=== PATIENT | male | born 1995 | race Caucasian/White ===

== ENCOUNTER 2020-08-09 21:30 | Inpatient (IN) | payer MEDICAID ==
[~2020-08-09] VITALS: Ht 175.3 cm; Wt 64.7 kg
[2020-08-09 22:29] LABS: COVID AG,FIA SOURCE NASOPHARYNGEAL
[2020-08-09 23:01] LABS: BASOPHILS % (AUTO) 0.3 % (0.0-2.0); EOSINOPHILS % (AUTO) 0 % (1.0-6.0); HEMATOCRIT 43.6 % (41-53); HEMOGLOBIN 14.1 g/dL (13.5-17.5); LYMPHOCYTES # (AUTO) 2.3 K/uL (1.0-4.8); LYMPHOCYTES % (AUTO) 20.7 % (22.0-44.0); MEAN CORPUSCULAR HEMOGLOBIN 28.8 pg (26.0-34.0); MEAN CORPUSCULAR HGB CONC 32.4 G/dL (31.0-37.0); MEAN CORPUSCULAR VOLUME 89 fL (80-100); MONOCYTES % (AUTO) 8.8 % (2.0-9.0); NEUTROPHILS # (AUTO) 7.8 K/uL (1.8-7.7); NEUTROPHILS % (AUTO) 70.2 % (40.0-70.0); PLATELET COUNT (AUTO) 397 K/uL (150-450); RED CELL DISTRIBUTION WIDTH 13.2 % (11.5-14.5)
[2020-08-09 23:24] LABS: ANION GAP 12 mmol/L (8-16); CALCIUM, TOTAL 9.1 mg/dL (8.8-10.5); CARBON DIOXIDE 23 mmol/L (22-29); CHLORIDE 104 mmol/L (98-107); CREATININE 0.94 mg/dL (0.60-1.30); GLOMERULAR FILTR. RATE CALC > 60 mL/min (>60); GLUCOSE,RANDOM 100 mg/dL (70-110); POTASSIUM 4.2 mmol/L (3.5-5.1); SODIUM SERUM 139 mmol/L (136-145); UREA NITROGEN, BLOOD 19 mg/dL (7-18)
[2020-08-09 23:30] LABS: ALANINE AMINOTRANSFERASE 71 U/L (12-78); ALKALINE PHOSPHATASE 57 U/L (46-116); ASPARTATE AMINOTRANSFERASE 20 U/L (15-37); BILIRUBIN,TOTAL 0.6 mg/dL (0.1-1.0); TOTAL PROTEIN, SERUM 8.4 g/dL (6.4-8.2)
[2020-08-10] MEDS ORDERED: HALOPERIDOL LACTATE 5 MG/ML VIAL IM ONE (03:00)
[2020-08-10] MEDS ORDERED: DiphenhydrAMINE HCL 50 MG/ML VIAL IVP ONE (05:30)
[2020-08-10] MEDS ORDERED: LevETIRAcetam 1,000 MG in DEXTROSE 5%-WATER 100 ML IV ONE (05:45)
[2020-08-10] MEDS ORDERED: LORazepam 2 MG/ML VIAL IVP ONE (05:45)
[2020-08-10 06:05] LABS: AMPHET/METH SCREEN,URINE NEGATIVE (NEGATIVE); BARBITURATE SCREEN, URINE NEGATIVE (NEGATIVE); BENZODIAZEPINES SCREEN,URINE POSITIVE (NEGATIVE); CANNABINOID SCREEN,URINE POSITIVE (NEGATIVE); COCAINE SCREEN,URINE NEGATIVE (NEGATIVE); METHADONE SCREEN, URINE NEGATIVE (NEGATIVE); OPIATE SCREEN,URINE NEGATIVE (NEGATIVE)
[2020-08-10 06:09] LABS: PHENCYCLIDINE SCREEN,URINE NEGATIVE (NEGATIVE)
[2020-08-10 06:17] LABS: GLUCOSE,POINT OF CARE 98 MG/DL (70-110)
[2020-08-10] MEDS ORDERED: MORPHINE SULFATE 2 MG/ML SYRINGE IVP PRN (11:30)
[2020-08-10] MEDS ORDERED: ZOLPIDEM TARTRATE 5 MG TABLET PO PRN (11:30)
[2020-08-10] MEDS ORDERED: ONDANSETRON HCL 4 MG/2 ML VIAL IVP PRN (11:30)
[2020-08-10] MEDS ORDERED: MAGNESIUM SULFATE 2 GM, MVI, ADULT NO.1 WITH VIT K 10 ML, THIAMINE 100 MG, FOLIC ACID 1... IV ONE ×5 (11:30)
[2020-08-10] MEDS ORDERED: ACETAMINOPHEN 325 MG TABLET PO PRN (11:30)
[2020-08-10] MEDS ORDERED: MAGNESIUM HYDROXIDE SUSPENSION 30 ML UDCUP PO PRN (11:30)
[2020-08-10] MEDS ORDERED: BISACODYL 10 MG RECTAL RECTAL SUPPOSITORY PR PRN (11:30)
[2020-08-10] MEDS ORDERED: LevETIRAcetam 750 MG in DEXTROSE 5%-WATER 100 ML IV SCH (15:00)
[2020-08-10] MEDS: LORazepam 2 MG/ML VIAL IVP PRN ×2 (15:06→20:27)
[2020-08-10] MEDS: HEPARIN SODIUM,PORCINE 5,000 UNITS/ML VIAL SQ SCH (15:41)
[2020-08-10] MEDS: LevETIRAcetam 750 MG in DEXTROSE 5%-WATER 100 ML IV SCH (19:48)
[2020-08-10] MEDS ORDERED: LORazepam 2 MG/ML VIAL ONE (20:26)
[2020-08-10 20:46] LABS: GLUCOSE,POINT OF CARE 96 MG/DL (70-110)
[2020-08-10] MEDS: DOCUSATE SODIUM 100 MG CAPSULE PO SCH (21:00)
[2020-08-10 21:08] VITALS: BP 153/72
[2020-08-11 00:09] VITALS: BP 100/72
[2020-08-11] MEDS: HEPARIN SODIUM,PORCINE 5,000 UNITS/ML VIAL SQ SCH ×4 (00:48→23:35)
[2020-08-11] MEDS ORDERED: SODIUM CHLORIDE 0.9% 250 ML IV ONE (05:35)
[2020-08-11] MEDS: LevETIRAcetam 750 MG in DEXTROSE 5%-WATER 100 ML IV SCH ×2 (05:39→17:11)
[2020-08-11 05:51] VITALS: BP 156/96
[2020-08-11 07:30] VITALS: BP 132/80
[2020-08-11] MEDS: PANTOPRAZOLE SODIUM 40 MG DR TABLET PO SCH (11:14)
[2020-08-11] MEDS: DOCUSATE SODIUM 100 MG CAPSULE PO SCH ×2 (11:14→20:23)
[2020-08-11 11:52] VITALS: BP 125/79
[2020-08-11 15:31] VITALS: BP 121/71
[2020-08-11 20:15] VITALS: BP 134/71
[2020-08-12] VITALS (7 sets, daily range): BP systolic 122–136; BP diastolic 58–91
[2020-08-12] MEDS: LevETIRAcetam 750 MG in DEXTROSE 5%-WATER 100 ML IV SCH (06:12)
[2020-08-12] MEDS: HEPARIN SODIUM,PORCINE 5,000 UNITS/ML VIAL SQ SCH ×3 (08:24→23:35)
[2020-08-12] MEDS: DOCUSATE SODIUM 100 MG CAPSULE PO SCH ×2 (08:24→20:02)
[2020-08-12] MEDS: PANTOPRAZOLE SODIUM 40 MG DR TABLET PO SCH (08:24)
[2020-08-12] MEDS: LORazepam 2 MG/ML VIAL IVP PRN ×2 (14:57→20:28)
[2020-08-12] MEDS: HYDROCODONE/ACETAMINOPHEN 5-325 MG TABLET PO PRN ×2 (15:19→20:09)
[2020-08-12] MEDS ORDERED: LORazepam 2 MG/ML VIAL IM PRN (15:30)
[2020-08-12] MEDS: LevETIRAcetam 500 MG TABLET PO SCH (16:46)
[2020-08-13 05:05] VITALS: BP 127/64
[2020-08-13 07:15] VITALS: BP 133/96
[2020-08-13] MEDS: LevETIRAcetam 500 MG TABLET PO SCH (08:25)
[2020-08-13] MEDS: PANTOPRAZOLE SODIUM 40 MG DR TABLET PO SCH (08:25)
[2020-08-13] MEDS: HEPARIN SODIUM,PORCINE 5,000 UNITS/ML VIAL SQ SCH ×2 (08:27→16:21)
[2020-08-13] MEDS: DOCUSATE SODIUM 100 MG CAPSULE PO SCH (08:27)
[2020-08-13 11:19] VITALS: BP 142/79
[2020-08-13 14:56] VITALS: BP 125/78
[2020-08-13] MEDS ORDERED: LEVE500T53 PO (16:06)
== END 2020-08-13 18:40 | disposition home or self-care (01) | DRG 100 ==
LOC: EMS 21:30 → ICU 08-10 06:13 → AHU 08-10 09:24 → 6N 08-10 20:00 → 5S 08-10 20:45 → 6N 08-13 14:35
PROVIDERS: ADMIT Internal Medicine; ATTEND Internal Medicine
DX: R56.9 Unspecified convulsions (principal); G92 Toxic encephalopathy; M62.838 Other muscle spasm; Z20.822 Contact with and (suspected) exposure to COVID-19; F99 Mental disorder, not otherwise specified; F12.90 Cannabis use, unspecified, uncomplicated
CPT/HCPCS: 51702; 70450; 70551; 82948; 83605; 87426; 95816; 99285; G0480; J0712; J1200; J1630; J1644; J2060; J3411; J3475; J3490; J7030; J7050; J7060

== ENCOUNTER 2020-08-28 09:21 | Emergency (ER) | payer MEDICAID ==
[~2020-08-28] VITALS: Ht 177.8 cm; Wt 70.5 kg
[~2020-08-28 09:21] MED LIST: LEVE500T53 PO
[2020-08-28 09:59] LABS: COVID AG,FIA SOURCE NASAL SWAB
[2020-08-28 10:29] LABS: BASOPHILS % (AUTO) 0.3 % (0.0-2.0); EOSINOPHILS % (AUTO) 0 % (1.0-6.0); HEMATOCRIT 39.5 % (41-53); HEMOGLOBIN 13.1 g/dL (13.5-17.5); LYMPHOCYTES # (AUTO) 0.9 K/uL (1.0-4.8); LYMPHOCYTES % (AUTO) 11.1 % (22.0-44.0); MEAN CORPUSCULAR HEMOGLOBIN 29.3 pg (26.0-34.0); MEAN CORPUSCULAR HGB CONC 33.3 G/dL (31.0-37.0); MEAN CORPUSCULAR VOLUME 88 fL (80-100); MONOCYTES # (AUTO) 0.3 K/uL (0.1-1.0); MONOCYTES % (AUTO) 4.2 % (2.0-9.0); NEUTROPHILS # (AUTO) 6.5 K/uL (1.8-7.7); NEUTROPHILS % (AUTO) 84.4 % (40.0-70.0); PLATELET COUNT (AUTO) 267 K/uL (150-450); RED BLOOD CELL COUNT(AUTO) 4.48 MIL/uL (4.50-5.90); RED CELL DISTRIBUTION WIDTH 13.6 % (11.5-14.5)
[2020-08-28 10:45] LABS: ANION GAP 7 mmol/L (8-16); CALCIUM, TOTAL 9.8 mg/dL (8.8-10.5); CARBON DIOXIDE 28 mmol/L (22-29); CHLORIDE 104 mmol/L (98-107); CREATININE 0.82 mg/dL (0.60-1.30); GLOMERULAR FILTR. RATE CALC > 60 mL/min (>60); GLUCOSE,RANDOM 122 mg/dL (70-110); POTASSIUM 3.9 mmol/L (3.5-5.1); SODIUM SERUM 139 mmol/L (136-145); UREA NITROGEN, BLOOD 10 mg/dL (7-18)
[2020-08-28 10:51] LABS: ALANINE AMINOTRANSFERASE 74 U/L (12-78); ALBUMIN 3.9 g/dL (3.4-5.0); ALKALINE PHOSPHATASE 58 U/L (46-116); ASPARTATE AMINOTRANSFERASE 27 U/L (15-37); BILIRUBIN,TOTAL 0.3 mg/dL (0.1-1.0); TOTAL PROTEIN, SERUM 8.2 g/dL (6.4-8.2)
[2020-08-28 11:17] VITALS: BP 125/88
[2020-08-28] MEDS ORDERED: IBUPROFEN 800 MG TABLET PO ONE ×2 (11:30)
== END 2020-08-28 11:33 | disposition home or self-care (01) ==
LOC: EMS 09:26
DX: B34.9 Viral infection, unspecified (principal); Z20.822 Contact with and (suspected) exposure to COVID-19
CPT/HCPCS: 71045; 80053; 85025; 87426; 99284; 36415-L1; 36415-TC

== ENCOUNTER 2020-09-18 18:22 | Emergency (ER) | payer MEDICAID ==
[~2020-09-18] VITALS: Ht 180.3 cm; Wt 72.7 kg
[2020-09-18 20:58] VITALS: BP 140/81
== END 2020-09-19 00:13 | disposition home or self-care (01) ==
LOC: EMS 18:23
DX: T42.4X1A Poisoning by benzodiazepines, accidental (unintentional), initial encounter (principal); F17.200 Nicotine dependence, unspecified, uncomplicated; Y92.89 Other specified places as the place of occurrence of the external cause
CPT/HCPCS: 99283

== ENCOUNTER 2020-10-24 08:30 | Emergency (ER) | payer MEDICAID ==
[~2020-10-24] VITALS: Ht 177.8 cm; Wt 70.5 kg
[2020-10-24 08:35] VITALS: BP 157/90
[2020-10-24] MEDS ORDERED: LevETIRAcetam 500 MG TABLET ONE (09:21)
[2020-10-24] MEDS ORDERED: LevETIRAcetam 500 MG TABLET PO ONE (09:30)
== END 2020-10-24 09:27 | disposition home or self-care (01) ==
LOC: EMS 08:31
DX: R56.9 Unspecified convulsions (principal); Z76.0 Encounter for issue of repeat prescription
CPT/HCPCS: 99283